=== PATIENT | female | born 1985 | race Caucasian/White ===

== ENCOUNTER 2019-05-18 08:28 | Outpatient (REF) | payer SELFPAY ==
[2019-05-18 21:02] LABS: Anion Gap 6.8 mmol/L (3-11); BUN 11 mg/dL (7-18); CO2 29.2 mmol/L (21.0-32.0); CREATININE 0.84 mg/dL (0.55-1.02); Calcium 8.6 mg/dL (8.5-10.1); Calculated LDL 124 mg/dL; Chloride 103 mmol/L (98-107); Cholesterol 219 mg/dL (50-200); Glucose 84 mg/dL (70-100); HDL Cholesterol 80 mg/dL (40-60); Potassium 4.6 mmol/L (3.5-5.1); Sodium 139 mmol/L (136-145); Triglyceride 75 mg/dL (30-150)
[2019-05-20 10:09] LABS: HBs Antibody, Quant >1000.0 mIU/mL; Hepatitis B Surface Ab Positive
== END 2019-05-18 08:48 ==
LOC: NCHCN 08:28
PROVIDERS: PCP Family Medicine; Visit Provider Family Medicine
DX: Z00.00 Encounter for general adult medical examination without abnormal findings (principal); Z11.59 Encounter for screening for other viral diseases; Z13.1 Encounter for screening for diabetes mellitus; Z13.220 Encounter for screening for lipoid disorders
CPT/HCPCS: 80048; 80061; 83721; 86706

== ENCOUNTER 2020-06-07 13:45 | Outpatient (REF) | payer OTHER, SELFPAY | END 2020-06-07 14:05 | LOC: NCHCN 13:45 | PROVIDERS: PCP Internal Medicine; Visit Provider Internal Medicine | DX: R30.0 Dysuria (principal) | CPT/HCPCS: 87077; 87086; 87186 ==

== ENCOUNTER 2020-10-04 11:59 | Outpatient (CLI) | payer OTHER, SELFPAY ==
--- NOTE | 2020-10-04 | DI.RAD_ITS ---
EXAM: XR HAND LT COMPLETE CLINICAL HISTORY: LT THUMB PAIN, M79.645, S/P TRAUMA ON 09/29 HITTING ON LOG, R/O THUMB FX TECHNIQUE: COMPARISON: No exams were available for comparison FINDINGS: Three views were obtained. There is no evidence of a fracture or dislocation. IMPRESSION: RADIATION DOSE DELIVERED: Total DLP
== END 2020-10-04 12:19 ==
PROVIDERS: PCP Internal Medicine; Visit Provider Nurse Practitioner Family
DX: M79.645 Pain in left finger(s) (principal)
CPT/HCPCS: 73130

== ENCOUNTER → 2020-10-09 11:29 | Outpatient (CLI) | payer OTHER, SELFPAY ==
--- NOTE | 2020-10-09 13:01 | DI.RAD_ITS ---
EXAM: XR WRIST LT COMP NAVICULAR CLINICAL HISTORY: PAIN IN LT WRIST, M25.532. TECHNIQUE: 2D digital imaging was performed. COMPARISON: No exams were available for comparison FINDINGS: There is no evidence of fracture or dislocation nor significant ulnar variance. The scaphoid-navicul ar dedicated view is unremarkable. Bone density is normal. No osseous lesions. No evidence of avas cular necrosis. IMPRESSION: No fracture evident. DATA REPOSITORY: RADIATION DOSE DELIVERED:
== END ==
PROVIDERS: PCP Internal Medicine; Visit Provider Physician Assistant Medical
DX: M25.532 Pain in left wrist (principal)
CPT/HCPCS: 73110

== ENCOUNTER 2020-11-30 22:28 | Outpatient (REF) | payer OTHER, SELFPAY ==
--- NOTE | 2020-11-30 11:30 | PAPFT_PTH ---
PATIENT: Dimple Giraldo LOC: [facility]#:[id number] AGE/SX: 35/F ROOM: RE11/30/[address]: John Simons : 1985 BED: DIS: 11/30/2020 SPEC #: [id number] RECD: 12/01/20 12:49 STATUS: MOISE REQ #: [id number] HERNANDO: 11/30/20 11:[address]: John Simons DEPT: [facility] Cytology RECD BY: Rosa Westfall ENTERED: 12/01/20 12:50 SP TYPE: PAPFT OTHR DR: Olivia Vaughn Tissues: 1 - CX/ENDOCX FOR PAP SMEARS Procedures: PAP THIN PREP/[facility] Screening HPV DNA PROBE Comments: [id number]
== END 2020-11-30 22:29 | disposition home or self-care (01) ==
LOC: NCHCN 22:28
PROVIDERS: PCP Internal Medicine; Visit Provider Family Medicine
DX: Z00.00 Encounter for general adult medical examination without abnormal findings (principal); Z12.4 Encounter for screening for malignant neoplasm of cervix; Z11.51 Encounter for screening for human papillomavirus (HPV)
CPT/HCPCS: 88142; 87624

== ENCOUNTER 2024-08-30 08:38 | Outpatient (REF) | payer OTHER, SELFPAY ==
[2024-08-30 17:22] LABS: ALT 26 U/L (14-59); AST 22 U/L (15-37); Albumin 4.2 g/dL (3.4-5.0); Alkaline Phosphatase 55 U/L (46-116); BUN 10 mg/dL (7-18); CREATININE 1.1 mg/dL (0.55-1.02); Calcium 9.2 mg/dL (8.5-10.1); Calculated LDL 188 mg/dL (<100); Chloride 104 mmol/L (98-107); Cholesterol 317 mg/dL (<200); Estimated GFR 65.14 (mL/min/1.73m2); Glucose 107 mg/dL (74-106); HDL Cholesterol 104 mg/dL (40-60); Potassium 4.5 mmol/L (3.5-5.1); Sodium 139 mmol/L (136-145); Total Protein 8.5 g/dL (6.4-8.2); Triglyceride 126 mg/dL (<150)
[2024-08-30 17:37] LABS: Anion Gap 9.9 mmol/L (3-11); CO2 25.1 mmol/L (21.0-32.0)
== END 2024-08-30 08:39 | disposition home or self-care (01) ==
LOC: NCHCN 08:38
PROVIDERS: PCP Internal Medicine; Visit Provider Family Medicine
DX: Z00.00 Encounter for general adult medical examination without abnormal findings (principal)
CPT/HCPCS: 80053; 80061

== ENCOUNTER 2025-01-19 09:06 | Outpatient (REF) | payer OTHER, SELFPAY ==
[2025-01-20 09:07] LABS: HIV-1/2 Ag & Ab Screen Negative (Negative)
[2025-01-20 14:23] LABS: Chlamydia Result Negative (Negative); GC Result Negative (Negative)
[2025-01-21 17:40] LABS: Syphilis IgG w/Reflex Nonreactive (Nonreactive)
== END 2025-01-19 09:07 | disposition home or self-care (01) ==
LOC: NCHCN 09:06
PROVIDERS: PCP Internal Medicine; Visit Provider Physician Assistant
DX: Z11.3 Encounter for screening for infections with a predominantly sexual mode of transmission (principal)
CPT/HCPCS: 87389; 87491; 87591; 86780

== ENCOUNTER 2025-02-04 20:39 | Outpatient (REF) | payer OTHER, SELFPAY ==
[2025-02-04 21:24] LABS: ALT 29 U/L (14-59); AST 27 U/L (15-37); Albumin 4.4 g/dL (3.4-5.0); Alkaline Phosphatase 64 U/L (46-116); Anion Gap 8.5 mmol/L (3-11); BUN 13 mg/dL (7-18); Bilirubin, Total 0.8 mg/dL (0.2-1.0); CO2 30.5 mmol/L (21.0-32.0); Calcium 9.9 mg/dL (8.5-10.1); Chloride 102 mmol/L (98-107); Estimated GFR 73.04 (mL/min/1.73m2); Glucose 99 mg/dL (74-106); Potassium 4.6 mmol/L (3.5-5.1); Sodium 141 mmol/L (136-145); Total Protein 9.1 g/dL (6.4-8.2)
== END 2025-02-04 20:40 | disposition home or self-care (01) ==
LOC: NCHCN 20:39
PROVIDERS: PCP Internal Medicine; Visit Provider Family Medicine
DX: F10.20 Alcohol dependence, uncomplicated (principal)
CPT/HCPCS: 80053

== ENCOUNTER 2025-03-17 13:59 | Outpatient (REF) | payer OTHER, SELFPAY ==
[2025-03-17 16:02] LABS: ALT 28 U/L (14-59); AST 26 U/L (15-37); Albumin 4.1 g/dL (3.4-5.0); Alkaline Phosphatase 54 U/L (46-116); Anion Gap 8.4 mmol/L (3-11); BUN 13 mg/dL (7-18); Bilirubin, Total 0.6 mg/dL (0.2-1.0); CO2 27.6 mmol/L (21.0-32.0); CREATININE 0.9 mg/dL (0.55-1.02); Chloride 99 mmol/L (98-107); Estimated GFR 82.88 (mL/min/1.73m2); Glucose 96 mg/dL (74-106); Potassium 4.8 mmol/L (3.5-5.1); Sodium 135 mmol/L (136-145); TSH (W/Ref FT4) 1.13 uIU/mL (0.36-3.74); Total Protein 8.2 g/dL (6.4-8.2)
[2025-03-18] LABS: Hepatitis C Ab w Rflx HCV PCR Negative (Negative)
[2025-03-18 00:07] LABS: HIV-1/2 Ag & Ab Screen Negative (Negative)
[2025-03-18 11:40] LABS: Syphilis Serology (RPR) Negative (Negative)
[2025-03-18 14:43] LABS: Chlamydia Result Negative (Negative); GC Result Negative (Negative)
== END 2025-03-17 14:00 | disposition home or self-care (01) ==
LOC: NCHCN 13:59
PROVIDERS: PCP Internal Medicine; Visit Provider Family Medicine
DX: E66.3 Overweight (principal); Z11.3 Encounter for screening for infections with a predominantly sexual mode of transmission; R77.9 Abnormality of plasma protein, unspecified
CPT/HCPCS: 80053; 81513; 86803; 87389; 87481; 87491; 87591; 87661; 84443; 86592

== ENCOUNTER 2025-09-08 16:31 | Outpatient (REF) | payer OTHER, SELFPAY ==
--- NOTE | 2025-09-08 11:50 | PAPFT_PTH ---
PATIENT: Dimple Giraldo LOC: [facility] U#:[id number] AGE/SX: 40/F ROOM: RE09/08/[address]: John Simons : 1985 BED: DIS: 09/08/2025 SPEC #: [id number] RECD: 09/08/25 18:20 STATUS: MOISE REQ #: [id number] HERNANDO: 09/08/25 11:[address]: John Simons DEPT: [facility] Cytology RECD BY: Rosa Westfall ENTERED: 09/08/25 18:20 SP TYPE: PAPFT OTHR DR: Olivia Vaughn Tissues: 1 - CX/ENDOCX FOR PAP SMEARS Procedures: PAP THIN PREP/[facility] Screening HPV DNA PROBE Comments: [id number] (HPV 16 & 18/45) (CHLAMYDIA/GC)
[2025-09-08 21:32] LABS: HCT 39.5 % (36.0-46.0); HGB 13.1 g/dL (11.2-15.7); MCH 29.8 pg (27.0-33.0); MCHC 33.2 % (32.0-36.0); MCV 90 fL (80-95); MPV 10.2 fL (8.0-11.0); Platelet Count 226 10^3/uL (130-400); RBC 4.39 10^6/uL (3.93-5.22); RDW 11.9 % (11.7-14.6); RDW-SD 39.2 fL; WBC 4.83 10^3/uL (4.4-10.8)
[2025-09-08 21:50] LABS: Vitamin D 25 Total 28 ng/mL (30-100)
[2025-09-08 21:52] LABS: ALT 18 U/L (10-49); AST 26 U/L (<34); Albumin 4.4 g/dL (3.2-5.0); Alkaline Phosphatase 48 U/L (46-116); Anion Gap 8 mmol/L (3-11); BUN 12 mg/dL (9-23); Bilirubin, Total 0.80 mg/dL (0.2-1.2); CO2 26.0 mmol/L (20.0-31.0); Calcium 9.5 mg/dL (8.3-10.6); Chloride 107 mmol/L (98-107); Cholesterol 272 mg/dL (<200); Glucose 109 mg/dL (74-106); HDL Cholesterol 102 mg/dL (>40); Potassium 4.0 mmol/L (3.5-5.1); Sodium 141 mmol/L (136-145); Total Protein 7.8 g/dL (5.7-8.2)
[2025-09-09 12:45] LABS: Chlamydia Result Negative (Negative); GC Result Negative (Negative)
== END 2025-09-08 16:32 | disposition home or self-care (01) ==
LOC: NCHCN 16:31
PROVIDERS: PCP Internal Medicine; Visit Provider Family Medicine
DX: Z00.00 Encounter for general adult medical examination without abnormal findings (principal); Z12.4 Encounter for screening for malignant neoplasm of cervix
CPT/HCPCS: 80053; 80061; 82306; 85027; 87491; 87591; 88142; 87624